=== PATIENT | male | born 1965 | race Caucasian/White ===

== ENCOUNTER → 2016-12-17 | Outpatient (CLI) | payer MEDICARE, BC ==
--- NOTE | 2016-12-17 08:42 | CT ---
EXAMINATION TYPE: CT brain wo con DATE OF EXAM: 12/17/2016 8:37 AM COMPARISON: 06/02/2011 MRI brain INDICATION: Abnormal smell DLP: 1036 mGycm, Automated exposure control for dose reduction was used. CONTRAST: None CT of the brain is performed utilizing 3 mm thick sections through the posterior fossa and 3 mm thick sections through the remaining calvarium. Study is performed within 24 hours of arrival to the [facility]. No abnormal hyperdensity is present to suggest an acute intracranial hemorrhage. No mass lesion is evident. No acute infarcts are evident. Cribriform plate appears normal. Ventricles and sulci are appropriate for the patient age. Paranasal sinuses and mastoid air cells within the [id number] are clear. IMPRESSIONS: 1. Normal CT Brain
--- NOTE | 2016-12-17 09:35 | FL ---
EXAMINATION TYPE: FL barium swallow DATE OF EXAM: 12/17/2016 9:21 AM CLINICAL HISTORY: Dysphagia with feeling of food getting stuck and aspiration for months per patient. Some relief with medication per patient. TECHNIQUE: A double contrast esophagram is performed utilizing air and barium. A total of 70 second s of fluoroscopic time was utilized during procedure. COMPARISON: CT cap November 01, 2014. FINDINGS: The esophagus shows some dysmotility particularly when lying flat with poor peristalsis, sa tisfactory motility is seen with standing upright drinking. No evidence of hiatal hernia, intralumin al mass, or significant focal stricture noted. No significant gastroesophageal reflux was seen during real time performance of this study. Note is made of the anterior fusion plate in the lower cervical spine. Note is made of fairly moderate pharyngeal residual throughout the study. No aspiration was e vident. IMPRESSION: Some esophageal dysmotility when lying flat significantly improved when upright or with g ravitational assistance, moderate pharyngeal residuals noted. Consider correlating with speech therap ist assisted modified barium swallow.
== END | disposition home or self-care (01) ==
LOC: RADCTMAIN 08:13
PROVIDERS: ATTEND Family Medicine
DX: K22.4 Dyskinesia of esophagus (principal); R51 Headache; R13.12 Dysphagia, oropharyngeal phase; R43.8 Other disturbances of smell and taste
CPT/HCPCS: 70450; 74220

== ENCOUNTER → 2019-03-23 | Outpatient (CLI) | payer MEDICARE, BC ==
--- NOTE | 2019-03-23 13:12 | CT ---
EXAMINATION TYPE: CT chest w con DATE OF EXAM: 03/23/2019 COMPARISON: CT chest November 01, 2014 HISTORY: COPD with shortness of breath CT DLP: 271.5 mGycm. Automated Exposure Control for Dose Reduction was Utilized. TECHNIQUE: CT scan of the thorax is performed following with IV Contrast, patient injected with 100 mL of Isovue 300. FINDINGS: LUNGS: Sacrum moderate to advanced emphysematous change most prominent in the upper lobes is redemons trated. No suspicious consolidation or infiltrate is seen. No pleural effusion or pneumothorax is not ed. There is central mild peribronchial wall thickening presumed product of underlying COPD redemonst rated. MEDIASTINUM: There are no greater than 1 cm hilar or mediastinal lymph nodes. No cardiomegaly or pe ricardial effusion is seen. OTHER: Cholecystectomy clips are noted. Mild multilevel spurring is present. IMPRESSION: Moderate to advanced emphysematous change redemonstrated without acute pulmonary process.
== END | disposition home or self-care (01) ==
LOC: RADCTMAIN 11:47
PROVIDERS: ATTEND Internal Medicine Critical Care Medicine
DX: J43.9 Emphysema, unspecified (principal); Z88.5 Allergy status to narcotic agent
CPT/HCPCS: 71260; Q9967

== ENCOUNTER → 2021-07-24 | Outpatient (CLI) | payer MEDICARE, BC ==
[2021-07-24 12:46] LABS: ABG Base Excess 3.5 mmol/L; ABG HCO3 28 mmol/L (21-25); ABG Oxygen Saturation 93.6 % (94-97); ABG PCO2 42 mmHg (35-45); ABG PH 7.43 (7.35-7.45); ABG PO2 65 mmHg (83-108); ABG TCO2 29 mmol/L (19-24); Allen Test Performed? Yes
== END | disposition home or self-care (01) ==
LOC: LABWHC1 12:22
PROVIDERS: ATTEND Internal Medicine Critical Care Medicine
DX: J44.9 Chronic obstructive pulmonary disease, unspecified (principal); M94.0 Chondrocostal junction syndrome [Tietze]
CPT/HCPCS: 36600; 82805

== ENCOUNTER → 2021-08-08 | Outpatient (CLI) | payer MEDICARE, BC ==
--- NOTE | 2021-08-08 18:00 | ECHOF ---
Referral Reason:J44.9 COPD MEASUREMENTS -------- HEIGHT: 175.3 cm WEIGHT: 86.2 kg BP: RVIDd: 3.4 cm (< 3.3) IVSd: 1.0 cm (0.6 - 1.1) LVIDd: 3.4 cm (3.9 - 5.3) LVPWd: 1.3 cm (0.6 - 1.1) IVSs: 1.2 cm LVIDs: 3.4 cm LVPWs: 1.2 cm LA Diam: 2.7 cm (2.7 - 3.8) Ao Diam: 2.5 cm (2.0 - 3.7) MV EXCURSION: 17.715 mm (> 18.000) MV EF SLOPE: 71 mm/s (70 - 150) MV E Kenyon: 0.59 m/s MV DecT: 169 ms MV A Kenyon: 0.53 m/s MV E/A Ratio: 1.12 RAP: 5.00 mmHg RVSP: 10.41 mmHg FINDINGS -------- Sinus rhythm. This was a technically adequate study. LV size, wall thickness and systolic function are normal, with an EF greater than 55%. The left divina tricular size is normal. The right ventricle is normal in size. The left atrial size is normal. The right atrial size is normal. There is mild aortic valve sclerosis. There is no evidence of aortic regurgitation. Mild mitral regurgitation is present. Mild tricuspid regurgitation present. Right ventricular systolic pressure is normal at < 35 mmHg. There is no pulmonic regurgitation present. There is no pericardial effusion. CONCLUSIONS -------- 1. LV size, wall thickness and systolic function are normal, with an EF greater than 55%. 2. The left ventricular size is normal. 3. The right ventricle is normal in size. 4. The left atrial size is normal. 5. The right atrial size is normal. 6. There is mild aortic valve sclerosis. 7. Mild mitral regurgitation is present. 8. Mild tricuspid regurgitation present. 9. There is no pericardial effusion. [employer]: Michelle Hurley RDCS
--- NOTE | 2021-08-10 17:42 | CT ---
EXAMINATION TYPE: CT chest wo con DATE OF EXAM: 08/08/2021 COMPARISON: 03/23/2019 HISTORY: 55-year-old male J44.9, SOB, history of COPD TECHNIQUE: Contiguous axial scanning of the chest without IV contrast. Coronal and sagittal reconstru ctions performed. CT DLP: 329.9 mGycm Automated exposure control for dose reduction was used. FINDINGS: The heart is normal size without pericardial effusion. Aorta normal caliber with conventional large vessel branching anatomy. Scattered nonenlarged mediastinal lymph nodes are redemonstrated. No thoracic lymphadenopathy by CT s ize criteria. Redemonstrated is advanced emphysematous change. - Stable 5 mm right apical pulmonary nodule, axial image 13. - 3 mm peripheral left basilar pulmonary nodule remains unchanged, axial image 63. - A couple 3 mm lingular pulmonary nodules, axial image 44 and 48 are unchanged. Some strandy adjacent scar atelectasis inferior lingula. No consolidation or pleural effusion. Cholecystectomy clips. Circumaortic left renal vein. Unchanged 9 mm nodularity left adrenal gland. Mi [id number] stool burden. Bones: Partially visualized ACDF hardware. No osseous destructive process. IMPRESSION: COPD WITH ADVANCED EMPHYSEMA REDEMONSTRATED. A FEW 5 MM AND SMALLER PULMONARY NODULES REMAIN UNCHANGE D FOR OVER 2 YEARS COMPATIBLE WITH A BENIGN ETIOLOGY. NO ACUTE PULMONARY PROCESS.
== END | disposition home or self-care (01) ==
LOC: RADCTMAIN 14:17
PROVIDERS: ATTEND Internal Medicine Critical Care Medicine
DX: J43.9 Emphysema, unspecified (principal); R91.8 Other nonspecific abnormal finding of lung field
CPT/HCPCS: 71250; 93306

== ENCOUNTER → 2023-06-03 | Outpatient (CLI) | payer MEDICARE, BC ==
--- NOTE | 2023-06-07 08:24 | CT ---
EXAMINATION TYPE: CT abdomen pelvis w con DATE OF EXAM: 06/03/2023 COMPARISON: 11/01/2014 HISTORY: abdominal pain x [address] DLP: 733.4 mGycm CONTRAST: CT scan of the abdomen and pelvis is performed with Oral Contrast and with IV Contrast, patient injec virgilio with 100 mL of Isovue 300. FINDINGS: LUNG BASES-: No visible nodule. No infiltrate. LIVER/GB: The gallbladder is surgically absent. On the delayed images involving the anterior segmen t of the right hepatic lobe there is an altered area of attenuation measuring 5.2 x 5.2 cm could refl ect an area of focal fat infiltration. Underlying mass is not excluded. Biliary tree is of normal pedro iber. PANCREAS: There is a pancreatic body mass measuring 4.9 x 3.7 cm with encasement of the celiac artery and partial encasement of the SMA. This is felt to reflect malignancy until proven otherwise. SPLEEN: No splenic enlargement. No lesion seen. ADRENALS: No nodule. No thickening. KIDNEYS/BLADDER: No hydronephrosis. No nephrolithiasis. No distinct renal mass. Urinary bladder g rossly unremarkable. BOWEL: Normal appendix. Normal bowel caliber. No inflammation. GENITAL ORGANS: No gross abnormality. LYMPH NODES: Aorto intracaval lymph node measures 1.1 cm. A couple of subcentimeter gastrohepatic lig ament lymph nodes are seen. AORTA: No significant abnormality. OSSEOUS STRUCTURES: No significant abnormality is seen. OTHER: No significant additional abnormality is seen. IMPRESSION: 1. Pancreatic body mass felt to reflect malignancy until proven otherwise. As noted there is encaseme nt of the celiac artery and partial encasement of the SMA. 2. Altered area of attenuation within the anterior segment right hepatic lobe could reflect a mass ve rsus an area of focal fat infiltration. Further evaluation with ultrasound and/or MRI is advised.
== END | disposition home or self-care (01) ==
LOC: RADCTMAIN 13:20
PROVIDERS: ATTEND Internal Medicine Gastroenterology
DX: C25.1 Malignant neoplasm of body of pancreas (principal); R10.9 Unspecified abdominal pain
CPT/HCPCS: 74177; Q9967

== ENCOUNTER → 2023-06-16 | Outpatient (CLI) | payer MEDICARE, BC ==
--- NOTE | 2023-06-17 08:51 | MR ---
EXAMINATION TYPE: MR liver wo/w con DATE OF EXAM: 06/17/2023 8:39 AM CLINICAL INDICATION:Male, 57 years old with history of K76.9; Liver disease, Abnormal CT done 06-03-20 COMPARISON: CT scan abdomen from 06/03/2023.. TECHNIQUE: Multiplanar multi-sequence imaging was performed without contrast. Post contrast imaging was performed. Post IV contrast subtraction images were also submitted for review. IV Contrast: 8 cc Gadavist FINDINGS: LOWER CHEST: Scattered pulmonary nodular densities in the lower lungs as seen on prior CT remain pres ent and less well appreciated on MRI. ABDOMEN Liver: Mild signal dropout on chemical shift in phase imaging suggestive of iron deposition. No evide nce for hepatic steatosis or cirrhosis. No suspicious observations. Gallbladder and Bile ducts: No evidence for ductal dilation, or biliary stricture or evidence of chol edocholithiasis. The gallbladder is within normal limits. Pancreas: There is a pancreatic body mass measuring 5.3 x 4.9 x 3.2 cm which has soft tissue extendin g around the vasculature more posteriorly. Postcontrast imaging demonstrates delayed enhancement of t his lesion as well as the irregular soft tissue extending posteriorly around the vessels suspicious f or microinvasion. There is upstream dilation of the main pancreatic duct extending into the tail. Spleen: Normal for size. Adrenal glands: Unremarkable. Kidneys: Simple appearing right renal cyst measuring up to 2.1 cm. No evidence for obstructive uropat hy. No suspicious renal masses. Stomach and Bowel: No evidence for bowel wall thickening or evidence for obstruction.. Peritoneum: No evidence of pneumoperitoneum or free fluid. Vasculature: No aortic aneurysm. The left hepatic mass encases portions of the splenic artery series 901 image 367 the celiac axis near its bifurcation as well as the greater than 180 degrees encasement of the superior mesenteric artery. Musculoskeletal: The osseous structures appear intact. Lymph Nodes: Prominent lymph node as described above near the pancreatic neck. Other gastrointestinal hepatic ligament lymph nodes are suspicious series 901 image 416 Abdominal wall: Unremarkable. IMPRESSION: Pancreatic body mass with encasement of multiple upper abdominal vascular structures including the sp lenic artery, the celiac axis bifurcation, and the superior mesenteric artery. Few nearby lymph nodes are suspicious for metastatic disease. Scattered pulmonary nodular density seen on CT are remain pre sent and are suspicious for metastatic disease until proven otherwise. Consider PET/CT for evaluation for metabolic activity.
== END | disposition home or self-care (01) ==
LOC: RADMRIMAIN 21:15
PROVIDERS: ATTEND Internal Medicine Gastroenterology
DX: K76.9 Liver disease, unspecified (principal); J98.4 Other disorders of lung; R91.1 Solitary pulmonary nodule
CPT/HCPCS: 74183; A9585